=== PATIENT | female | born 1940 | race Caucasian/White ===

== ENCOUNTER 2018-06-26 12:24 | Emergency (ER) | payer MEDICARE, OTHER ==
[2018-06-26 14:43] VITALS: BP 144/77
--- NOTE | 2018-06-26 15:18 | UC ---
Lower Extremity/Ankle HPI - HPI Summary HPI Summary: Pt c/o right ankle pain s/p stepping and having "stick" "poking" medial malleolus ~ 3 weeks ago. Pt states that the wound did not bleed an dshe travelled to [place] for 3 weeks and reports that right ankle was swollen, tender and painful to walk on. - History of Current Complaint Chief Complaint: UCLowerExtremity Stated Complaint: RT ANKLE COMPLAINT Time Seen by Provider: 06/26/18 14:25 Hx Obtained From: Patient ?: No Onset/Duration: Sudden Onset, Lasting Weeks, Still Present Severity Initially: Moderate Severity Currently: Moderate Pain Intensity: 8 Aggravating Factor(s): Standing, Ambulation Alleviating Factor(s): Rest, Elevation, Ice Able to Bear Weight: Yes - Risk Factors Gout Risk Factors: Age Over 40, Hypertension DVT Risk Factors: Recent Travel Septic Arthritis Risk Factor: Negative - Allergies/Home Medications Allergies/Adverse Reactions: Allergies Allergy/AdvReac Type Severity Reaction Status Date / Time amlodipine [From [facility]] Allergy Swelling Verified 06/26/18 14:46 of legs lisinopril Allergy Coughing Verified 06/26/18 14:46 morphine AdvReac Vomiting Verified 06/26/18 14:46 Home Medications: Home Medications Albuterol HFA INHALER* [Ventolin HFA Inhaler*] 2 puff INH Q4H PRN 06/26/18 [ History Confirmed 06/26/18] Amitriptyline TAB* [Elavil TAB*] 10 mg PO BEDTIME 06/26/18 [History Confirmed ] Calcium Carbonate [Calcium] 1,200 mg PO DAILY 06/26/18 [History Confirmed ] Citalopram TAB* [CeleXA TAB*] 20 mg PO DAILY 06/26/18 [History Confirmed ] Diltiazem TAB* [Cardizem 60 MG Tab*] 120 mg PO DAILY 06/26/18 [History Confirmed 06/26/18] Esomeprazole Magnesium [Nexium] 20 mg PO EVERY OTHER DAY 06/26/18 [History Confirmed 06/26/18] Levothyroxine TAB* [Synthroid TAB*] 75 mcg PO DAILY 06/26/18 [History Confirmed 06/26/18] Lipase/Protease/Amylase [Creon 6000 Unit] 36,000 unit PO TID 06/26/18 [History Confirmed 06/26/18] Rivaroxaban TAB(*) [Xarelto 20 mg] 20 mg PO DAILY 06/26/18 [History Confirmed ] celeCOXIB CAP* [CeleBREX CAP*] 100 mg PO BID PRN 06/26/18 [History Confirmed 02/08] PMH/Surg Hx/FS Hx/Imm Hx Previously Healthy: Yes Endocrine History: Dyslipidemia Cardiovascular History: Cardiac Disease, Hypertension, Pacemaker/ICD, Atrial Fibrillation - Surgical History Surgical History: Yes Surgery Procedure, Year, and Place: hysterectomy, c-sect x 4, disc herniation x 2, thyroid x 2, cardiac pacemaker and pneumo thorax 12/17/16- [facility]; and re-do at [facility] due to incorrect lead, a-fib - Family History Known Family History: Positive: Cardiac Disease - Social History Occupation: Retired Lives: With Family Alcohol Use: None Substance Use Type: None Smoking Status (MU): Never Smoked Tobacco Have You Smoked in the Last Year: No - Immunization History Most Recent Tetanus Shot: 2013 approximately Review of Systems Constitutional: Negative Skin: Negative Eyes: Negative ENT: Negative Respiratory: Negative Cardiovascular: Negative Gastrointestinal: Negative Genitourinary: Negative Motor: Decreased ROM - pain with ROM right ankle Neurovascular: Negative Musculoskeletal: Decreased ROM, Edema, Myalgia Neurological: Negative Psychological: Negative Is Patient Immunocompromised?: No All Other Systems Reviewed And Are Negative: Yes Physical Exam Triage Information Reviewed: Yes Appearance: Well-Appearing Vital Signs: Initial Vital Signs Temp 97.6 F 06/26/18 14:26 Pulse 62 06/26/18 14:26 Resp 20 06/26/18 14:26 BP 144/77 06/26/18 14:26 Pulse Ox 96 06/26/18 14:26 Vital Signs Reviewed: Yes Eye Exam: Normal ENT Exam: Normal ENT: Positive: Hearing grossly normal Dental Exam: Normal Neck exam: Normal Respiratory Exam: Normal Respiratory: Positive: No respiratory distress Musculoskeletal: Positive: Edema @ - right ankle lateral and medial Neurological Exam: Normal Psychological Exam: Normal Skin Exam: Normal Diagnostics - Radiology No standard instances Radiology Interpretation Completed By: Radiologist - TECHNIQUE: 3 views of the right ankle were obtained. FINDINGS: There is diffuse soft tissue swelling. The bones are in normal alignment. No fracture or significant focal osseous abnormality is seen. Joint spaces appear maintained. No radiopaque foreign body is seen. IMPRESSION: SOFT TISSUE SWELLING, NO RADIOPAQUE FOREIGN BODY IS SEEN. Lower Extremity Course/Dx - Differential Dx/Diagnosis Differential Diagnosis/HQI/PQRI: Infection, Osteomyelitis, Sprain, Strain Provider Diagnoses: right ankle edema. right ankle pain Discharge - Sign-Out/Discharge Documenting (check all that apply): Patient Departure - Discharge Plan Condition: Stable Disposition: HOME Patient Education Materials: Swollen Ankle Joint (ED) Referrals: Reynaldo Ruiz MD [Medical Doctor] - If Needed Juan Angel MD [Primary Care Provider] - If Needed - Billing Disposition and Condition Condition: STABLE Disposition: Home
--- NOTE | 2018-06-26 15:21 | RAD ---
INDICATION: Pain and swelling, stepped on object. TECHNIQUE: 3 views of the right ankle were obtained. FINDINGS: There is diffuse soft tissue swelling. The bones are in normal alignment. No fracture or significant focal osseous abnormality is seen. Joint spaces appear maintained. No radiopaque foreign body is seen. IMPRESSION: SOFT TISSUE SWELLING, NO RADIOPAQUE FOREIGN BODY IS SEEN.
== END 2018-06-26 15:37 | disposition home or self-care (01) ==
LOC: UCCORT 12:24
DX: M25.471 Effusion, right ankle (principal); M25.571 Pain in right ankle and joints of right foot; Z88.8 Allergy status to other drugs, medicaments and biological substances; Z88.4 Allergy status to anesthetic agent; E78.5 Hyperlipidemia, unspecified; Z95.811 Presence of heart assist device; I51.9 Heart disease, unspecified; I48.91 Unspecified atrial fibrillation
CPT/HCPCS: 99212; G0463

== ENCOUNTER 2018-09-05 11:35 | Emergency (ER) | payer MEDICARE, OTHER ==
--- OUTSIDE RECORDS SUMMARY | 2018-09-05 11:46 | XMS REPORT ---
:1940 Author Organization [facility] Address [address] [place] [address] Care Team Providers Name Role Phone Daniele Weber Unavailable Unavailable PROBLEMS Type Condition ICD9-CM Code OHD38-GD Code Onset Condition SNOMED Code Dates Status Problem Dysuria R30.0 Active 30340323 Problem Acute vulvitis N76.2 Active 23214564 Problem Pelvic and R10.2 Active 392559786 perineal pain Problem Frequency of R35.0 Active 816755669 micturition ALLERGIES No Information ENCOUNTERS Encounter Location Date Diagnosis [facility] [address], [place], [place] [id number] [facility] [address], [place] [id number] [facility] [address], [place] [id number] [facility] [address], [place] [id number] [facility] [address], Encounter for screening OBGYN [facility], mammogram for malignant [place] [id number] neoplasm of breast Z12.31 ; Dysuria R30.0 ; Acute vulvitis N76.2 ; Pelvic and perineal pain R10.2 and Frequency of micturition R35.0 [facility] [address], [place]BGYN [place], [place] [id number] [facility] [address], 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 O[facility], and UTI [Urinary tract [place] [id number] infection] 599.0 [facility] [address], OBGYN [facility], [place] [id number] [facility] [address], Dysuria 788.1 ; Urinary OBGYN [facility], frequency 788.41 and [place] [id number] Urinary urgency 788.63 [facility] [address] Feb, 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 OBGYN [facility], and PELVIC PAIN 625.9 [place] [id number] IMMUNIZATIONS No Known Immunizations SOCIAL HISTORY Never Assessed REASON FOR REFERRAL FUNCTIONAL STATUS PLAN OF CARE VITAL SIGNS MEDICATIONS Medication Instructions Dosage Frequency Start Date End Date Duration Status Flagyl 500 mg po bid 1 tab 12 Aug, 7 days Active PROCEDURES No Known procedures RESULTS No Results REASON FOR VISIT BV Insurance Providers [facility] Member Patient Patient Patient Patient Patient Subscriber Subscriber Subscriber Group Insurance Plan Plan Plan Plan ID Relationship Address Phone Name Date of ID Name Date of No Type Insurance Insurance Insurance Coverage to Subscriber Address Phone Name Dates R [phone] [employer] Jennifer [id number] [facility] [address] Medicare [phone] Medicare self Jennifer [id number] [facility] [address] [employer] [address] [employer] self Jennifer [id number] [address] [place] [address] Medicare [phone] Medicare self Jennifer [id number] [facility] [address] MEDICAL (GENERAL) HISTORY Type Description Date Medical History hypertension Medical History thyroid cancer Medical History GERD Medical History Chronic lower back pain Medical History anxiety Medical History chronic pancreatitis Medical History IBS Medical History meniere's disease Surgical History Thyroidectomy 1971 Surgical History hysterectomy(partial)/enometriosis 1979 Surgical History back surgery/disk repair 1997 Surgical History back surgery/disk repair 1999 Surgical History 1961 Surgical History 1963 Surgical History 1964 Surgical History 1972 Surgical History colonoscopy 2015 Surgical History pacemaker placed 06/2017 Hospitalization History see above
--- OUTSIDE RECORDS SUMMARY | 2018-09-05 11:46 | XMS REPORT ---
:1940 External Reference #:[id number] Author Organization [facility] Address [address] [place] [address] Phone [phone] Care Team Providers Name Role Phone Gregoria Weber MD Care Team Information Manager Ship Unavailable Juan Angel M.D. Primary Care Physician Unavailable Payers Type Date Identification Numbers Payment Provider Subscriber Medicare Primary Policy Number: [id number] Medicare Jennifer Porras PayID: [id number] [address] [place] [address] Medigap Part B Effective: 2012 Policy Number: [place] Chris Porras [id number] Expires: 2017 Group Name: [employer] [address] PayID: [id number] [place] [address] Medigap Part B Policy Number: [id number] [facility] Chris Porras Group Number: [id number] [address] [address] PayID: [id number] [place] [address] Problems Date Description Provider Status Onset: 03/12/2012 Female stress incontinence Dwayne Foy M.D. Active Onset: 03/12/2012 Increased frequency of urination Lidia Lundberg MD Active Family History Date Family Member(s) Problem(s) Comments Father Congestive Heart Failure (CHF) Mother Leukemia First Brother Cancer, Thyroid Second Brother Parkinson's Disease Free Text Denies Prostate, Bladder, Kidney Cancer. No family history of kidney stones. Brother had thyroid cancer. Mother- leukemia. Father - CHF. Brother- Parkinson's disease. 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 Nexium 04/[address] 40mg 1 po qd [facility] Dwayne Awan M.D. Calcium 600+D 04/10 Active Tablets 600-200mg daily Bernardo -Unit Dwayne Awan M.D. Elavil 04/10 Active 10mgS 30uni 1 po qhs ts Dwayne Awan M.D. Celebrex 04/10 Active Capsules 100mg 28cap [facility]n [facility] Citalopram Active Tablets 10mg Unknown Hydrobromide /0000 B Complex Active Capsules Unknown /0000 Diltiazem HCL Active Tablets 120mg Unknown /0000 Xarelto Active Tablets 20mg Unknown /0000 Amitriptyline Active Tablets 10mg take 1 Unknown HCL /0000 tablet by mouth at bedtime Ventolin HFA Active Aerosol 108(90Bas inhale 2 Unknown /0000 e) puffs every mcg/Act 4 hours as needed Keflex 07/22 Hx Capsules 500mg 8caps 1 by mouth Wilver twice a day MD Tyson - 08/03 Flomax 09/27 Hx Capsules 0.4mg 30cap 1 by mouth Law, s every day Dwayne Awan, - M.DCody 07/21 Vesicare 08/10 Hx Tablets 5mg 90tab 1 by mouth Law s every day Dwayne Awan, - M.D. 09/25 Diflucan 07/30 Hx Tablets 150mg 2tabs 1 Tab Today Then Repeat Dwayne Awan, - Day 4 M.D. 08/01 Pyridium 07/30 Hx Tablets 100mg 30tab 1-2 po tid Law s prn Dwayne AwanDesmond M.DCody 07/21 Mycolog Cream 07/30 Hx Cream 667573-9. 30[facility] 316630-7.1 1Unit/GM affected Dwayne Awan, Unit/GM - area twice M.DCody 08/09 daily prn Macrodantin 12/03 Hx Capsules 50mg 90cap 1 po qd 599.0 [facility] s Dwayne EmperatrizDesmond M.DCody 11/27 Synthroid 04/10 Hx Tablets 88mcg alternating [facility] days Dwayne Emperatriz - M.DCody 08/09 Diovan HCT 04/10 Hx Tablets 320-25mg 1 po qd [facility] Dwayne EmperatrizDesmond MSung 07/21 Cardizem CD 04/10 Hx Caps ER 120mgS daily [facility] Dwayne EmperatrizDesmond MSung 07/21 Amitriptyline Hx Tablets 10mg take 1 Unknown HCL /0000 tablet by - mouth at 08/09 bedtime Diltiazem HCL Hx Tablets 120mg take 1 Unknown /0000 tablet by - mouth once 08/09 Vagifem Hx Tablets 10mcg insert 1 Unknown /0000 tablet - vaginally 08/09 two times week Azithromycin Hx Tablets 250mg take 2 Unknown /0000 tablets by - mouth on 08/15 day 1 1 tablet on days 2 through 5 Klor-Con 10 Hx Tablets ER 10Meq take 1 Unknown /0000 tablet by - mouth once 07/21 Moxifloxacin HCL Hx Tablets 400mg take 1 Unknown /0000 tablet by - mouth once 08/15 Calcitriol Hx Capsules 0.5mcg Unknown /0000 - 08/09 Diazepam Hx Tablets 5mg take 1 Unknown /0000 tablet by - mouth three 08/09 times a day if needed Ondansetron Hx Tablets 8mg dissolve 1 Unknown /0000 Dispers tablet On - Tongue 08/09 every hours if needed for nausea Dicyclomine HCL Hx Tablets 20mg take 1 Unknown /0000 tablet by - mouth three 08/09 times a day Diltiazem HCL 00/00 Hx Tablets 90mg take 1 Unknown /0000 tablet by - mouth once 08/09 Amoxicillin 00/ Hx Capsules 500mg take 1 Unknown /0000 capsule by - mouth three 08/15 times a day for 10 days Prednisone 00/00 Hx Tablets 10mg take 1 Unknown /0000 tablet by - mouth every 08/09 Alrex / Hx Suspension 0.2% instill 1 Unknown /0000 drop every - morning 08/09 into both eyes as Directed Prednisone Hx Tablets 20mg take 1 Unknown /0000 tablet by - mouth once 08/09 daily for To 5 Days Prevident 5000 Hx Paste 1.1% use as Unknown Booster Plus /0000 directed - 08/09 Pantoprazole /[address] 40mg take 1 Unknown Sodium /0000 tablet by - mouth once 08/09 Fluzone Hx Suspension PF 13-14 inject 0.5 Unknown High-Dose /0000 milliliter - intramuscul 08/09 gilberto Celexa 00/00 Hx Tablets 10mg every day Unknown /0000 - 07/21 Aspirin 00/00 Hx Tablets 81mg daily Unknown /0000 - 07/21 Phenazopyridine 00/00 Hx Tablets 95mg Unknown HCL /0000 - 07/21 Plaquenil 00/00 Hx Tablets 200mg 1 by mouth Unknown /0000 twice a day - 07/21 Vital Signs Date Vital Result Comment 07/22/2018 Height 62 inches 5'2" Weight 131.00 lb Weight in kg's 59.422 BMI (Body Mass Index) 24.0 kg/m2 02/14/2015 Height 62 inches 5'2" Weight 130.00 lb Weight in kg's 58.968 BMI (Body Mass Index) 23.8 kg/m2 BP Systolic 118 mmHg right wrist audio BP Diastolic 75 mmHg right wrist audio Heart Rate 85 /min Body Temperature 98.0 F 07/30/2012 Height 62 inches 5'2" Weight 125.00 lb Weight in kg's 56.700 BMI (Body Mass Index) 22.9 kg/m2 BP Systolic 139 mmHg right BP Diastolic 79 mmHg right Heart Rate 91 /min Body Temperature 98.3 F 12/03/2011 BP Systolic 121 mmHg right wrist BP Diastolic 67 mmHg right wrist Heart Rate 74 /min Body Temperature 97.7 F Results Test Date Test Result H/L Range Note 230 Ua Routine 08/12/2018 Ua Glucose Negative Ua Protein Negative Ua Nitrite Negative Ua Leuko Trace Ua Blood Negative Ua Color Yellow Ua Ketones Negative Ua Clarity Clear Ua Specific [place] 1.010 1.003-1.030 Ua PH 7.5 5.0-7.5 Ua Bilirubin Negative Ua Urobilinogen 0.2 E.U./dL 0.0-1.0 Urine Culture 07/22/2018 Urine Culture NO GROWTH: FINAL <SEE NOTE> 1, 2 230 Ua Routine 07/22/2018 Ua Glucose Negative Ua Protein Negative Ua Nitrite Negative Ua Leuko Negative Ua Blood Negative Ua Color Yellow Ua Ketones Negative Ua Clarity Clear Ua Specific [place] 1.010 1.003-1.030 Ua PH 7.0 5.0-7.5 Ua Bilirubin Negative Ua Urobilinogen 0.2 E.U./dL 0.0-1.0 230 Ua Routine 05/21/2016 Ua Glucose Negative Ua Protein Negative Ua Nitrite Negative Ua Leuko 1+ Ua Blood Negative Ua Color yellow Ua Ketones Negative Ua Clarity clear Ua Specifici [place] 1.015 1.003-1.030 Ua PH 7.0 5.0-7.5 Ua Bilirubin Negative Ua Urobilinogen 0.2 E.U./dL 0.0-1.0 Urine Culture & Sensitivity 02/14/2015 Result (SEE NOTE) 3 #Ua Routine 02/14/2015 Ua Glucose Negative Ua Protein Negative Ua Nitrite Negative Ua Leuko 1+ Ua Blood Negative Ua Color yellow Ua Ketones Negative Ua Clarity clear Ua Specific [place] 1.015 1.003-1.030 Ua PH 7.5 5.0-7.5 Ua Bilirubin Negative Ua Urobilinogen 0.2 E.U./dL 0.0-1.0 #Ua Routine 09/27/2014 Ua Glucose Negative Ua Protein Negative Ua Nitrite Negative Ua Leuko Trace Ua Blood Negative Ua Color yellow Ua Ketones Negative Ua Clarity clear Ua Specific [place] 1.020 1.003-1.030 Ua PH 7.0 5.0-7.5 Ua Bilirubin Negative Ua Urobilinogen 0.2 E.U./dL 0.0-1.0 Urine Culture & Sensitivity 09/27/2014 Result mix f 100 4 Urine Cytology 09/27/2014 Clinical History 599.0 5 Specimen Adequacy Scant urothelial <SEE NOTE> 6 BodySite Voided - Clean C <SEE NOTE> 7 Gross Description Received in a sp <SEE NOTE> 8 Microscopic Description None. Final Diagnosis NO MALIGNANT IVAN <SEE NOTE> 9 CPTCode 87306 PDF Report SEE IMAGE Urine Culture & Sensitivity 08/10/2014 Result trent 10 #Ua Routine 08/10/2014 Ua Glucose Negative Ua Protein Negative Ua Nitrite Negative Ua Leuko Trace Ua Blood Negative Ua Color yellow Ua Ketones Negative Ua Clarity clear Ua Specific [place] 1.010 1.003-1.030 Ua PH 6.0 5.0-7.5 Ua Bilirubin Negative Ua Urobilinogen 0.2 E.U./dL 0.0-1.0 #Ua Routine 08/13/2012 Ua Glucose Negative Ua Protein Negative Ua Nitrite Negative Ua Leuko 1+ Ua Blood Negative Ua Color Not Entered Ua Ketones Negative Ua Clarity Not Entered Ua Specific [place] 1.015 Ua PH 7.5 Ua Bilirubin Negative Ua Urobilinogen 0.2 E.U./dL Culture Urine 07/30/2012 Result (SEE NOTE) 11 #Ua Routine 07/30/2012 Ua Glucose Negative Ua Protein Negative Ua Nitrite Negative Ua Leuko Trace Ua Blood Trace-intact Ua Color Not Entered Ua Ketones Negative Ua Clarity Not Entered Ua Specific [place] 1.020 Ua PH 7.5 Ua Bilirubin Negative Ua Urobilinogen 0.2 E.U./dL Culture Urine 12/03/2011 Result (SEE NOTE) 12 #Ua Routine 12/03/2011 Ua Glucose Negative Ua Protein Negative Ua Nitrite Negative Ua Leuko Trace Ua Blood Negative Ua Color Not Entered Ua Ketones Negative Ua Clarity Not Entered Ua Specific [place] 1.010 Ua PH 7.0 Ua Bilirubin Negative Ua Urobilinogen 0.2 E.U./dL Culture Urine 03/15/2011 Result (SEE NOTE) 13 #Ua Routine 03/15/2011 Ua Glucose Negative Ua Prot/Creat Normal Ua Protein Negative Ua Nitrite Negative Ua Leuko 1+ Ua Blood Negative Ua Color Not Entered Ua Ketones Negative Ua Clarity Not Entered Ua Specific [place] 1.010 Ua PH 7.5 Ua Creatinine 100 mg/dL 1 N39.0 R30.0 2 NO GROWTH: FINAL REPORT 3 GENERAL COMMENTS: Mixed urogenital trent, 10,000-20,000 CFU/mL. 4 GENERAL COMMENTS: Mixed urogenital trent, consisting of predominantly diphtheroids greater than 100,000 CFU/mL. 5 599.72 6 Scant urothelial cells present. 7 Voided - Clean Catch 8 Received in a specimen container, labeled with the patients name and , is Clear Yellow fluid consistent with urine, measuring approximately 20 ml. 9 NO MALIGNANT CELLS IDENTIFIED. 10 SOURCE: Voided GENERAL COMMENTS: Mixed urogenital trent, 10,000 - 20,000 CFU/mL. 11 GENERAL COMMENTS: Less than 10,000 CFU/ml, urogential trent. --- S=Sensitive I=Intermediate R=Resistant IB=Inducible Beta-lactamase. Appears in place of "Suceptible" with species known to possess inducible beta-lactamases. Potentially, they may become resistant to all beta-lactam drugs. Monitoring of p atients during/after therapy is recommended. Avoid other/combined beta- lactam drugs. 12 GENERAL COMMENTS: No Growth after 24 hours. --- S=Sensitive I=Intermediate R=Resistant IB=Inducible Beta-lactamase. Appears in place of "Suceptible" with species known to possess inducible beta-lactamases. Potentially, they may become resistant to all beta-lactam drugs. Monitoring of p atients during/after therapy is recommended. Avoid other/combined beta- lactam drugs. 13 GENERAL COMMENTS: No Growth after 24 hours --- S=Sensitive I=Intermediate R=Resistant IB=Inducible Beta-lactamase. Appears in place of "Suceptible" with species known to possess inducible beta-lactamases. Potentially, they may become resistant to all beta-lactam drugs. Monitoring of p atients during/after therapy is recommended. Avoid other/combined beta- lactam drugs. Procedures Date CPT Code Description Status 08/12/2018 21950 Bladder Scan, Post Voiding Residual Urine Completed 07/22/2018 65761 Catheterization, Single Spec Collection - Medicare Only Completed 03/24/2016 Mammogram Completed 12/25/2015 Colonoscopy Completed 09/27/2014 17644 Ultrasound Retro Renal Real Time With Image Completed 09/27/2014 66503 Cystourethroscopy, W/Calibration And/Or Dilation Of Completed Urethral Stri Encounters Type Date Location Provider CPT E/M Dx Office Visit 08/12/2018 10:30a [place] [facility] [address] R30.0 Urology Natalie Elizondo R39.15 D41.10 Office Visit 07/22/2018 10:15a [place] [facility] [address] N39.0 Urology Natalie Elizondo R30.0 Office Visit 05/21/2016 10:30a [facility] Dwayne Foy, 57786 N39.3 M.D. N35.9 Office Visit 02/14/2015 10:50a [facility] Dwayne Foy, 91002 599.0 M.D. 788.41 598.9 Office Visit 09/27/2014 9:20a [facility] Dwayne Foy, 24032 599.0 M.D. 788.41 788.21 598.9 599.72 Office Visit 08/10/2014 1:50p [facility] Dwayne Foy, 15099 599.0 M.D. 788.41 625.6 Office Visit 08/13/2012 10:15a [facility] Jeri Lee NP/GLENN 40240 599.0 Office Visit 07/30/2012 2:15p [place] Jeri Lee, [employer] [address] 788.1 788.41 Office Visit 12/03/2011 11:40a [place] Dwayne Foy, 13679 599.0 M.D. 625.6 788.41 Office Visit 03/15/2011 10:30a [place] Jeri Lee, [place] [address] 788.41 593.2 625.6 Plan of Care Future Appointment(s):09/08/2018 10:45 am - Dennis ElizondoPObdulio at [place] Vkakoyh73/08/2018 10:00 am - [facility] [place] [id number] - Dennis ElizondoPObdulioR30.0 DysuriaComments:Currently we will hold with antibiotics. We reviewed dietary control and potential for triggers. Shewas provided information regarding presentation to be used with [id number] Urgency of urinationComments:She may try Uribel once twice a day. Dosing and side effects reviewed. 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 In the meantime I'll see her back 4 weeks in 3 weeks will have a renal bladder ultrasound.AllNew Medication:Uribel 118 mg
--- OUTSIDE RECORDS SUMMARY | 2018-09-05 11:46 | XMS REPORT ---
:1940 External Reference #:[id number] Author Organization [facility] Address [address] [place] [address] Phone [phone] Care Team Providers Name Role Phone Faith Manuel MD Care Team Information Cnc Mechanic Unavailable Faith Manuel MD Primary Care Physician Unavailable Payers Type Date Identification Numbers Payment Provider Subscriber Medicare Primary Policy Number: [id number] Medicare Jennifer Porras PayID: [id number] [address] [place] [address] Commercial Policy Number: [id number] Lifetime Benefit Solution Chris Porras Group Number: [id number] [address] [address] PayID: [place] [address] Problems Description No Information Social History Description No Information Available Allergies, Adverse Reactions, Alerts Description No Information Medications Description No Information Results Description No Information Procedures Date CPT Code Description Status 06/29/2009 64185 Stress Test Interpre And Report Only Completed Encounters Type Date Location Provider CPT E/M Dx Office Visit 04/23/2014 1:20p [facility] Remigio Tovar [address] 786.50 [facility] Anabel 386.00 401.1 276.8 787.01 Office Visit 04/01/2007 11:00a Operating Room Rene Martinez M.D. 56577 Plan of Care No Information Available
--- OUTSIDE RECORDS SUMMARY | 2018-09-05 11:46 | XMS REPORT ---
:1940 Author Organization [facility] Address [address] [place] [address] Care Team Providers Name Role Phone Rosa Hernandez Unavailable Unavailable PROBLEMS Type Condition ICD9-CM Code URO28-DQ Code Onset Condition SNOMED Code Dates Status Problem Dysuria R30.0 Active 82528373 Problem Acute vulvitis N76.2 Active 74520175 Problem Pelvic and R10.2 Active 396876941 perineal pain Problem Frequency of R35.0 Active 677827247 micturition ALLERGIES Substance Reaction Event Type Date Status morphine severe vomiting Drug Allergy Aug, Active ENCOUNTERS Encounter Location Date Diagnosis [facility] [address] Aug, OBGYN [place], [place] [id number] [facility] Aug, [facility] [place] [id number] 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 OBGYN [facility], and UTI [Urinary tract [place] [id number] infection] 599.0 [facility] 103 March, OBGYN [facility], [place] [id number] [facility] 103 March, Dysuria 788.1 ; Urinary OBGYN [facility], frequency 788.41 and [place] [id number] Urinary urgency 788.63 [facility] 103 11 Feb, 2006 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 O[facility]YN [facility], and PELVIC PAIN 625.9 [place] [id number] IMMUNIZATIONS No Known Immunizations SOCIAL HISTORY Never Assessed REASON FOR REFERRAL FUNCTIONAL STATUS PLAN OF CARE Activity Details Follow Up schedule mammo, annual in 1 yr, abdominal US & f/u w/Dr. G in 1-2 weeks Reason: Pending Test Screening Mammogram Pending Test UA RFX MICRO & CULTURE II Pending Test URINALYSIS WITH MICROSCOPIC Pending Test Vaginosis Panel VITAL SIGNS Height 61 in 2018-08-26 Weight 132 lbs 2018-08-26 BMI 24.94 kg/m2 2018-08-26 Blood pressure systolic 132 mm Hg 2018-08-26 Blood pressure diastolic 86 mm Hg 2018-08-26 MEDICATIONS Medication Instructions Dosage Frequency Start End Duration Status Date Date Vagifem 10 mcg intravaginally 2 1 tab(s) Active times a week Nexium 20 mg orally once a day 1 cap(s) 24h Active Ventolin HFA 90 inhaled 4 times a 2 puff(s) 6h Active mcg/inh day Lotrisone applied topically 1 benjamin 12h Aug, 10 days Active 0.05%-1% 2 times a day 2017 citalopram 20 mg orally once a day 1 tab(s) 24h Active amitriptyline 10 orally once a day 1 tab(s) Active mg (at bedtime) Diflucan 150 mg orally once, 1 tab(s) Aug, 3 days Active repeat in 3 days 2018 diltiazem 120 orally every 12 1 cap(s) 12h Active mg/12 hours hours Uribel 0.12 orally 4 times a 1 cap(s) 6h Active mg-118 mg-10 day mg-36 mg-40.8 mg Synthroid 75 mcg orally once a day 1 tab(s) 24h Active (0.075 mg) Calcium 600+D 600 orally 2 times a 1 tab(s) 12h Active mg-800 intl units day celecoxib 100 mg orally 2 times a 1 cap(s) Active day PRN Creon 36,000 orally 3 times a 1 cap(s) 8h Active units-114,000 day units-180,000 units PROCEDURES Procedure Date Ordered Result Body Site URINE-NO MICRO Aug 26, 2018 RESULTS Name Result Date Reference Range Urine dip Glucose blood protein Nitrite Leuko Urobilinogen Keytone Bilirubin pH REASON FOR VISIT dysuria and pressure when urinating x 5 weeks , saw Dr. 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 Insurance Providers [facility] Health Member Patient Patient Patient Patient Patient Subscriber Subscriber Subscriber Group Insurance Plan Plan Plan Plan ID Relationship Address Phone Name Date of ID Name Date of No Type Insurance Insurance Insurance Coverage to Subscriber Address Phone Name Dates Medicare [phone] Medicare self Jennifer [id number] [facility] [address] [employer] [phone] [employer] self Jennifer [id number] [address] Medicare [phone] Medicare self Jennifer [id number] [facility] [address] UMR [phone] UMR Jennifer [id number] [facility] [address] [address] MEDICAL (GENERAL) HISTORY Type Description Date Medical History hypertension Medical History thyroid cancer Medical History GERD Medical History Chronic lower back pain Medical History anxiety Medical History chronic pancreatitis Medical History IBS Medical History meniere's disease Surgical History Thyroidectomy 1971 Surgical History hysterectomy(partial)/enometriosis 1979 Surgical History back surgery/disk repair 1997 Surgical History back surgery/disk repair 1999 Surgical History 1960 Surgical History 1962 Surgical History 1964 Surgical History 1971 Surgical History colonoscopy 2015 Surgical History pacemaker placed 06/2017 Hospitalization History see above
--- OUTSIDE RECORDS SUMMARY | 2018-09-05 11:46 | XMS REPORT ---
:[address] [facility] Address [address] [place] [address] Care Team Providers Name Role Phone Daniele Weber Unavailable Unavailable PROBLEMS Type Condition ICD9-CM Code NRG01-YM Code Onset Condition SNOMED Code Dates Status Problem Dysuria R30.0 Active 16616998 Problem Acute vulvitis N76.2 Active 21272187 Problem Pelvic and R10.2 Active 116988758 perineal pain Problem Frequency of R35.0 Active 591780499 micturition ALLERGIES No Information ENCOUNTERS Encounter Location Date Diagnosis [facility] Aug, OBGYN [place], [place] [id number] [facility] [address] Aug, [place]BGYN [place] [id number] [facility] Aug, [place] [id number] [facility] 103 Aug, [place]BGYN [place] [id number] [facility] 103 Aug, Encounter for screening OBG[facility], mammogram for malignant [place] [id number] neoplasm of breast Z12.31 ; Dysuria R30.0 ; Acute vulvitis N76.2 ; Pelvic and perineal pain R10.2 and Frequency of micturition R35.0 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 March, OBGYN [facility], [place] [id number] [facility] 103 March, Dysuria 788.1 ; Urinary OBG[facility], frequency 788.41 and [place] [id number] Urinary urgency 788.63 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 O[facility], and PELVIC PAIN 625.9 [place] [id number] IMMUNIZATIONS No Known Immunizations SOCIAL HISTORY Never Assessed REASON FOR REFERRAL FUNCTIONAL STATUS PLAN OF CARE VITAL SIGNS MEDICATIONS Medication Instructions Dosage Frequency Start Date End Date Duration Status Flagyl 500 mg po bid 1 tab 12 Aug, 7 days Active PROCEDURES No Known procedures RESULTS No Results REASON FOR VISIT Flagyl Insurance Providers [facility] Health Member Patient Patient Patient Patient Patient Subscriber Subscriber Subscriber Group Insurance Plan Plan Plan Plan ID Relationship Address Phone Name Date of ID Name Date of No Type Insurance Insurance Insurance Coverage to Subscriber Address Phone Name Dates UMR [phone] UMR Jennifer [id number] [facility] [address] [employer] [phone] [employer] self Jennifer [id number] [address] Medicare [phone] Medicare self Jennifer [id number] [facility] [address] Medicare [phone] Medicare self Jennifer [id number] [facility] [address] MEDICAL (GENERAL) HISTORY Type Description Date Medical History hypertension Medical History thyroid cancer Medical History GERD Medical History Chronic lower back pain Medical History anxiety Medical History chronic pancreatitis Medical History IBS Medical History meniere's disease Surgical History Thyroidectomy 1971 Surgical History hysterectomy(partial)/enometriosis 1979 Surgical History back surgery/disk repair 1997 Surgical History back surgery/disk repair 1999 Surgical History 196 Surgical History 1963 Surgical History 1964 Surgical History 1972 Surgical History colonoscopy 2015 Surgical History pacemaker placed 06/2017 Hospitalization History see above
--- OUTSIDE RECORDS SUMMARY | 2018-09-05 11:47 | XMS REPORT ---
:1940 External Reference #:[id number] Author Organization [facility] Address [address] [place] [address] Phone [phone] Care Team Providers Name Role Phone Gregoria Weber MD Care Team Information Core Sucker Unavailable Juan Angel M.D. Primary Care Physician Unavailable Payers Type Date Identification Numbers Payment Provider Subscriber Medicare Primary Policy Number: [id number] Medicare Jennifer Porras PayID: [id number] [address] [place] [address] Medigap Part B Effective: 2012 Policy Number: Pom[place] Chris Porras [id number] Expires: 2017 Group Name: Ppo [address] PayID: [id number] [place] [address] Medigap Part B Policy Number: [id number] [facility] Chris Porras Group Number: [id number] [address] [address] PayID: [id number] [place] [address] Problems Date Description Provider Status Onset: 03/12/2012 [...] Active Capsules DR 40mg 1 po qd [facility] Dwayne Awan M.D. Calcium 600+D 04/10 Active Tablets 600-200mg daily Bernardo -Unit Dwayne Awan M.D. Elavil 04/10 Active 10mgS 30uni 1 po qhs ts Dwayne Awan M.D. Celebrex 04/10 Active Capsules 100mg 28cap 1 po q prn [facility] M.D. Citalopram Active Tablets [...] M.DCody 07/21 Mycolog Cream 07/30 Hx Cream 869952-3. 30gm [facility], 475955-3.1 1Unit/GM affected Dwayne Awan, Unit/GM - area twice M.DCody 08/09 daily prn Macrodantin 12/03 Hx Capsules 50mg 90cap 1 po qd 599.0 [facility] s Dwayne EmperatrizDesmond M.DCody 11/27 Synthroid 04/10 Hx Tablets 88mcg alternating [facility] days Dwayne Emperatriz - M.DCody 08/09 Diovan HCT 04/10 Hx Tablets 320-25mg 1 po qd [facility] Dwayne EmperatrizDesmond MSung 07/21 Cardizem CD 04/10 Hx Caps ER 120mgS daily [facility] Dwayne EmperatrizDesmond MSung 07/21 Amitriptyline Hx [...] Ketones Negative Ua Clarity Clear Ua Specific [place] 1.010 1.003-1.030 Ua PH 7.5 5.0-7.5 Ua Bilirubin Negative Ua Urobilinogen 0.2 E.U./dL 0.0-1.0 Urine Culture 07/22/2018 Urine Culture NO GROWTH: FINAL <SEE NOTE> 1, 2 230 Ua Routine 07/22/2018 Ua Glucose Negative Ua Protein Negative Ua Nitrite Negative Ua Leuko Negative Ua Blood Negative Ua Color Yellow Ua Ketones Negative Ua Clarity Clear Ua Specific [place] 1.010 1.003-1.030 Ua PH 7.0 5.0-7.5 Ua Bilirubin Negative Ua Urobilinogen 0.2 E.U./dL 0.0-1.0 230 Ua Routine 05/21/2016 Ua Glucose Negative Ua Protein Negative Ua Nitrite Negative Ua Leuko 1+ Ua Blood Negative Ua Color yellow Ua Ketones Negative Ua Clarity clear Ua Specifici [place] 1.015 1.003-1.030 Ua PH 7.0 5.0-7.5 Ua Bilirubin Negative Ua Urobilinogen 0.2 E.U./dL 0.0-1.0 Urine Culture & Sensitivity 02/14/2015 Result (SEE NOTE) 3 #Ua Routine 02/14/2015 Ua Glucose Negative Ua Protein Negative Ua Nitrite Negative Ua Leuko 1+ Ua Blood Negative Ua Color yellow Ua Ketones Negative Ua Clarity clear Ua Specific [place] 1.015 1.003-1.030 Ua PH 7.5 5.0-7.5 Ua Bilirubin Negative Ua Urobilinogen 0.2 E.U./dL 0.0-1.0 #Ua Routine 09/27/2014 Ua Glucose Negative Ua Protein Negative Ua Nitrite Negative Ua Leuko Trace Ua Blood Negative Ua Color yellow Ua Ketones Negative Ua Clarity clear Ua Specific [place] 1.020 1.003-1.030 Ua PH 7.0 5.0-7.5 Ua [...] NO MALIGNANT IVAN <SEE NOTE> 9 CPTCode 74291 PDF Report SEE IMAGE Urine Culture & Sensitivity 08/10/2014 Result trent 10 #Ua Routine 08/10/2014 Ua Glucose Negative Ua Protein Negative Ua Nitrite Negative Ua Leuko Trace Ua Blood Negative Ua Color yellow Ua Ketones Negative Ua Clarity clear Ua Specific [place] 1.010 1.003-1.030 Ua PH 6.0 5.0-7.5 Ua Bilirubin Negative Ua Urobilinogen 0.2 E.U./dL 0.0-1.0 #Ua Routine 08/13/2012 Ua Glucose Negative Ua Protein Negative Ua Nitrite Negative Ua Leuko 1+ Ua Blood Negative Ua Color Not Entered Ua Ketones Negative Ua Clarity Not Entered Ua Specific [place] 1.015 Ua PH 7.5 Ua Bilirubin Negative Ua Urobilinogen 0.2 E.U./dL Culture Urine 07/30/2012 Result (SEE NOTE) 11 #Ua Routine 07/30/2012 Ua Glucose Negative Ua Protein Negative Ua Nitrite Negative Ua Leuko Trace Ua Blood Trace-intact Ua Color Not Entered Ua Ketones Negative Ua Clarity Not Entered Ua Specific [place] 1.020 Ua PH 7.5 Ua Bilirubin Negative Ua Urobilinogen 0.2 E.U./dL Culture Urine 12/03/2011 Result (SEE NOTE) 12 #Ua Routine 12/03/2011 Ua Glucose Negative Ua Protein Negative Ua Nitrite Negative Ua Leuko Trace Ua Blood Negative Ua Color Not Entered Ua Ketones Negative Ua Clarity Not Entered Ua Specific [place] 1.010 Ua PH 7.0 Ua Bilirubin Negative Ua Urobilinogen 0.2 E.U./dL Culture Urine 03/15/2011 Result (SEE NOTE) 13 #Ua Routine 03/15/2011 Ua Glucose Negative Ua Prot/Creat Normal Ua Protein Negative Ua Nitrite Negative Ua Leuko 1+ Ua Blood Negative Ua Color Not Entered Ua Ketones Negative Ua Clarity Not Entered Ua Specific [place] 1.010 Ua PH 7.5 Ua Creatinine 100 [...] drugs. Procedures Date CPT Code Description Status 07/22/2018 46982 Catheterization, Single Spec Collection - Medicare Only Completed 03/24/2016 Mammogram Completed 12/25/2015 Colonoscopy Completed 09/27/2014 31690 Ultrasound Retro Renal Real Time With Image Completed 09/27/2014 97853 Cystourethroscopy, W/Calibration And/Or Dilation Of Completed Urethral Stri Encounters Type Date Location Provider CPT E/M Dx Office Visit 08/12/2018 10:30a [place] [facility] [address] R30.0 Urology Natalie Elizondo R39.15 D41.10 Office Visit 07/22/2018 10:15a [place] [address] N39.0 Urology Natalie Elizondo R30.0 Office Visit 05/21/2016 10:30a [facility], [address]47 N39.3 M.D. N35.9 Office Visit 02/14/2015 10:50a [facility], [address] 599.0 M.D. 788.41 598.9 Office Visit 09/27/2014 9:20a [facility] Dwayne Foy, 780[address] 599.0 M.D. 788.41 788.21 598.9 599.72 Office Visit 08/10/2014 1:50p [facility], [address] 599.0 M.D. 788.41 625.6 Office Visit 08/13/2012 10:15a [facility] Jeri Lee, JORJE/[place] [address] 599.0 Office Visit 07/30/2012 2:15p [facility] JesusJeri huertas, INFORMATION TECHNOLOGY SECURITY ANALYST/[place] [address] 788.1 788.41 Office Visit 12/03/2011 11:40a [facility] Dwayne Foy, [address] 599.0 M.D. 625.6 788.41 Office Visit 03/15/2011 10:30a [facility] JesusJeri, INFORMATION TECHNOLOGY SECURITY ANALYST/[place] [address] 788.41 593.2 625.6 Plan of Care Future Appointment(s):09/08/2018 10:45 am - [facility] [id number]/08/2018 10:00 am - Amaury [facility] [id number] - Dennis ElizondoPCodyACodyR30.0 DysuriaComments:Currently we will hold with antibiotics. We reviewed dietary control and potential for triggers. Shewas provided information regarding presentation to be used with [id number] Urgency of urinationComments:She may try Uribel once twice a day. Dosing and side effects reviewed. 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 In the meantime I'll see her back 4 weeks in 3 weeks will have a renal bladder ultrasound.AllNew Medication:Uribel 118 mg
[2018-09-05 12:33] VITALS: BP 123/70
--- NOTE | 2018-09-05 12:46 | UC ---
Respiratory Complaint HPI - HPI Summary HPI Summary: 77 year old female with cough . states sore throat beginning 7 days ago, progressed to productive cough and chest congestion. Patient has questionable respiratory issues and is awaiting seeing a pulmonary doctor at the end of this month. She denies any fevers but states that now that she is on day 7 and her cough has become more productive she is concerned because she has had previous bronchitis and pneumonia but states she does not feel like it is a pneumonia at this time. She denies any fevers chills or night sweats but has noticed some increased wheezing and use of her Ventolin inhaler. She states to have had all of her immunizations including her pneumonia shot a couple years ago. [ End ] - History of Current Complaint Chief Complaint: UCRespiratory Stated Complaint: CHEST CONGESTION, COUGH Time Seen by Provider: 09/05/18 12:40 Hx Obtained From: Patient Hx Last Menstrual Period: n/a Onset/Duration: Gradual Onset Timing: Constant Severity Initially: Mild Severity Currently: Mild Pain Intensity: 0 Character: Cough: Productive Associated Signs And Symptoms: Positive: Nasal Congestion, Sinus Discomfort - Allergies/Home Medications Allergies/Adverse Reactions: Allergies Allergy/AdvReac Type Severity Reaction Status Date / Time amlodipine [From Norvasc] Allergy Swelling Verified 09/05/18 12:27 of legs cephalexin [From Keflex] Allergy Rash Verified 09/05/18 12:27 lisinopril Allergy Coughing Verified 09/05/18 12:27 morphine AdvReac Vomiting Verified 09/05/18 12:27 PMH/Surg Hx/FS Hx/Imm Hx Previously Healthy: Yes Endocrine History: Hypothyroidism, Dyslipidemia Cardiovascular History: Hypertension - Surgical History Surgical History: Yes Surgery Procedure, Year, and Place: hysterectomy, c-sect x 4, disc herniation x 2, thyroid x 2, cardiac pacemaker and pneumo thorax 12/17/16- [facility]; and re-do at [facility] due to incorrect lead, a-fib - Family History Known Family History: Positive: Cardiac Disease - Social History Occupation: Retired Alcohol Use: None Substance Use Type: None Smoking Status (MU): Never Smoked Tobacco Have You Smoked in the Last Year: No - Immunization History Most Recent Tetanus Shot: 2013 approximately Review of Systems Constitutional: Fatigue ENT: Sore Throat, Ear Ache, Nasal Discharge, Sinus Congestion, Sinus Pain/ Tenderness Respiratory: Cough Is Patient Immunocompromised?: No All Other Systems Reviewed And Are Negative: Yes Physical Exam Triage Information Reviewed: Yes Appearance: Well-Appearing, No Pain Distress, Well-Nourished Vital Signs: Initial Vital Signs Temp 98.1 F 09/05/18 12:25 Pulse 80 09/05/18 12:25 Resp 18 09/05/18 12:25 BP 123/70 09/05/18 12:25 Pulse Ox 96 09/05/18 12:25 Vital Signs Reviewed: Yes Eye Exam: Normal ENT Exam: Normal ENT: Positive: Normal ENT inspection, Nasal congestion, Nasal drainage, TM dull Dental Exam: Normal Neck exam: Normal Neck: Positive: 1 Respiratory Exam: Normal Respiratory: Positive: Chest non-tender, Wheezing - Mild expiratory in the RLL Cardiovascular Exam: Normal Musculoskeletal Exam: Normal Neurological Exam: Normal Psychological Exam: Normal Skin Exam: Normal UC Diagnostic Evaluation - Laboratory O2 Sat by Pulse Oximetry: 96 Respiratory Course/Dx - Course Course Of Treatment: With the duration of her symptoms at this time with productive cough we will advised to start antibiotics. She has cephalosporin allergy which is a rash so will also avoid penicillin. Interaction with the Z- Jose Daniel with her current medication. Start doxycycline and off for cough suppressant for nighttime. Return to office if any concerns. No physical exam findings of pneumonia at this time and vital signs are stable. Patient agreeable to plan and aware of side effects. - Differential Dx/Diagnosis Differential Diagnosis/HQI/PQRI: Bronchitis, Laryngitis, Lower Resp Infection, Sinusitis Provider Diagnoses: bronchitis Discharge - Sign-Out/Discharge Documenting (check all that apply): Patient Departure All imaging exams completed and their final reports reviewed: No Studies - Discharge Plan Condition: Good Disposition: HOME Prescriptions: Benzonatate CAP* [Tessalon 100 MG CAP*] 100 mg PO TID #20 cap DOXYcycline CAP(*) [DOXYcycline 100MG CAP(*)] 100 mg PO BID #20 cap Patient Education Materials: Acute Bronchitis (ED) Referrals: Juan Angel MD [Primary Care Provider] - 4 Days - Billing Disposition and Condition Condition: GOOD Disposition: Home
== END 2018-09-05 13:08 | disposition home or self-care (01) ==
LOC: UCCORT 11:35
DX: J40 Bronchitis, not specified as acute or chronic (principal); Z88.1 Allergy status to other antibiotic agents; Z88.8 Allergy status to other drugs, medicaments and biological substances; Z88.5 Allergy status to narcotic agent; I10 Essential (primary) hypertension
CPT/HCPCS: 99212; G0463

== ENCOUNTER 2019-08-10 12:42 | Emergency (ER) | payer MEDICARE, OTHER ==
--- OUTSIDE RECORDS SUMMARY | 2019-08-10 12:49 | XMS REPORT | Continuity of Care Document ---
:1940 Author Name [employer], System Address Unavailable Unavailable , Care Team Providers Name Role Phone Mar GALVEZ, Faith Unavailable Unavailable Sadie GALVEZ, Eliceo Unavailable Jeanne GALVEZ, Chris Unavailable Problems No Problem Information Available Allergies and Adverse Reactions No Allergy Information Available Medications No Medication Information Available Social History No Social History Information Available Unknown if ever smoked Female Results No Known Results No Result Information Available Vital Signs No Vital Observation Information Available Advance Directives HIPAA - Patient specified Unknown. Payers Medicare [place] [address] [facility] [address] [place] Group Number: [id number] tel: [facility] [address] [address] [place] [address] [place] Group Number: NONE tel: [facility] [address] [address] [place] tel:
--- OUTSIDE RECORDS SUMMARY | 2019-08-10 12:49 | XMS REPORT | Continuity of Care Document ---
:1940 Author Name Personal Injury Attorney, System Address Unavailable Unavailable , Care Team Providers Name Role Phone Mar GALVEZ, Faith Unavailable Unavailable Sadie GALVEZ, Eliceo Unavailable Jeanne GALVEZ, Chris Unavailable Problems No Problem Information Available Allergies and Adverse Reactions No Allergy Information Available Medications No Medication Information Available Procedures Hospitalization Status: Completed Jul-2019 Comments: Abnormal. dyspnea; consultation Rosie GALVEZ 07/28/2019 Social History No Social History Information Available Unknown if ever smoked Female Results No Known Results No Result Information Available Vital Signs No Vital Observation Information Available Advance Directives HIPAA - Patient specified Unknown. Encounters Historical Summary 28-Jul-2019 13:04 To 28-Jul-2019 13:09 [place] [facility] Office Payers Medicare [place] [address] [facility] [address] [place] Group Number: NONE tel: [facility] [address] [address] [facility] [address] [place] Group Number: NONE tel: [facility] [address] [facility] [id number] [place] tel:
--- OUTSIDE RECORDS SUMMARY | 2019-08-10 12:49 | XMS REPORT | Continuity of Care Document ---
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 [phone] Problems Description No Information Available Social History Type Date Description Comments Sex Unknown Tobacco Use Start: Unknown Never Smoked Cigarettes Smoking Status Reviewed: 07/06/19 Never Smoked Cigarettes ETOH Use Denies alcohol use Tobacco Use Start: Unknown Patient has never smoked Recreational Drug Use Denies Drug Use Exercise Type/Frequency Exercises regularly Allergies, Adverse Reactions, Alerts Active Allergies Reaction Severity Comments Date Morphine 10/14/2018 Lisinopril 10/14/2018 Keflex 10/14/2018 Norvasc 10/14/2018 Medications Active Medications SIG Qnty Indications Ordering Date Provider Montelukast Sodium take 1 tablet 30tabs J45.20 Poncho Page MD 10/14/2018 10mg daily. Tablets Nexium Take 1 tablet 30caps K21.9 Poncho Page MD 10/14/[address] every day. Symbicort inhale two puffs Unknown by mouth daily 160-4.5mcg/Act Aerosol Furosemide take 1 tablet by Unknown 20mg Tablets mouth once daily Mucinex take 1 every 12 Unknown 600mg Tablets hours as needed ER 12HR for congestion with a full glass of water Calcium 600 2 po qd Unknown 600mg Tablets Ventolin HFA take 2 puffs every 8gm Poncho Page MD 6 hours as needed 108(90Base) mcg/Act for shortness of Aerosol breath. Celecoxib 1 tab by mouth Unknown 100mg twice a day as Capsules needed Creon 1 po tid Unknown [id number] Caps DR Acevedo Citalopram 1 by mouth every Unknown Hydrobromide day 20mg Tablets Synthroid 1 by mouth every Unknown 75mcg Tablets day Diltiazem HCL take one tablet by Unknown 120mg mouth once daily Tablets History Medications Neurontin 1 po bid and as 90caps J41.0 Poncho Page, 05/12/2019 - 100mg needed 07/06/2019 Capsules Prednisone take 2 tablet in 10tabs J45.20 Poncho Page, 03/17/2019 - 20mg Tablets the morning for MD Unknown five days Azithromycin take two tablets 6tabs J45.20 Poncho Page, 03/17/2019 - 250mg today, then one a MD Unknown Tablets day for the next four days. Diflucan One by mouth, 2tabs J45.20 Poncho Page, 03/17/2019 - 150mg Tablets repeat in one MD Unknown week. Albuterol Sulfate nebulized every 90ml Poncho Page, 03/17/2019 - 4-6 hours as 07/06/2019 (2.5mg/3ML) 0.083% needed Nebulizer Immunizations Description No Information Available Vital Signs Date Vital Result Comment 07/06/2019 2:32pm BP Systolic Sitting Left Arm 118 mmHg BP Diastolic Sitting Left Arm 60 mmHg Heart Rate 63 /min Respiratory Rate 20 /min Height 61 inches 5'1" Weight 133.50 lb BMI (Body Mass Index) 25.2 kg/m2 BSA (Body Surface Area) 1.59 m2 [place] body weight in kilograms 48 kg O2 % BldC Oximetry 95 % Ra Pain Level 0 05/12/2019 11:29am BP Systolic Sitting Left Arm 130 mmHg BP Diastolic Sitting Left Arm 68 mmHg Heart Rate 82 /min Respiratory Rate 16 /min Height 61 inches 5'1" Weight 136.00 lb BMI (Body Mass Index) 25.7 kg/m2 BSA (Body Surface Area) 1.60 m2 [place] body weight in kilograms 48 kg O2 % BldC Oximetry 96 % Results Test Date Facility Test Result H/L Range Note Respiratory 05/07/2019 [facility] Gram Stain NO ORGANISMS 1, 2 Culture W/Gram St [address] SEE <SEE NOTE> [place] [address] [phone] Respiratory Culture RESPIRATORY LEILANI <SEE NOTE> 3 Anaerobic Culture 05/07/2019 [facility] Gram Stain NO ORGANISMS SEE 4 W/ GR Stain [address] <SEE NOTE> [place] [address] [phone] Anaerobic Culture NO GROWTH Pleural FLD 05/07/2019 [facility] Smear Review (SEE NOTE) 5 cc/Diff [address] [place] [address] [phone] Afb Smear And 05/07/2019 [facility] Afb Culture No acid fast [address] [place] <SEE NOTE> [place] [facility] [phone] Fungal Culture 05/07/2019 [facility] Fungal Fluorochrome Result 1 7 With Smear [address] Stain [place] [address] [phone] Fungal Culture; Other Sources No yeast or mold <SEE NOTE> 8 Viral Culture 05/07/2019 [facility] Viral Culture No virus [address] isolate <[place] [address] NOTE> [phone] CBC 04/29/2019 [facility] White Blood 7.9 K/uL Normal 3.1-10 10 W/Automated [address] Count .7 [place] [address] [phone] Red Blood Count 4.10 M/uL Normal 3.90-5.40 Hemoglobin 12.6 gm/dL Normal 11.6-15.8 Hematocrit 37.7 % Normal 36.0-46.1 Mean Cell Volume 92.0 fl Normal 80.9-99.0 Mean Corpuscular HGB 30.7 pg Normal 25.9-32.7 Mean Corpuscular HGB Conc 33.4 g/dL Normal 30.8-34.3 Platelet Count 353 K/uL Normal 155-360 Red Cell Distri Width SD 45.5 fl Normal 36-47 Red Cell Distri Width %CV 13.3 % Normal 11.7-14.4 Mean Platelet Volume 9.8 fl Normal 8.9-12.4 Neut% 51.5 % Normal 40.4-72.8 Lymph % 32.7 % Normal 20.0-42.0 Grimes % 11.2 % Normal 4.3-13.2 Eo% 3.1 % Normal 0.0-6.6 Bas% 1.1 % Normal 0.0-1.1 Immature Grans 0.4 % Normal 0.0-5.0 NRBC % 0.0 /100WBC < 10/ 100 WBC Neut# 4.04 K/uL Normal 1.8-7.0 Lymph # 2.57 K/uL Normal 1.0-4.0 Grimes # 0.88 K/uL Normal 0.3-0.9 Eos # 0.24 K/uL Normal 0.0-0.5 Baso # 0.09 K/uL Normal 0.0-0.1 Immature Grans Absolute 0.03 K/uL NRBC # 0.00 K/uL Anticoagulant Therapy? NO Act Partial 04/29/2019 [facility] Act Partial 27.6 seconds Normal 23.4-35.0 Thrombo Time [address] [place] [place] [address] [phone] Anticoagulant Therapy? NO Protime 04/29/2019 [facility] Protime 13.4 seconds Normal 12.0-14.[address] [place], [place] [id number] [phone] Inr 1.0 Normal 0.9-1.1 11 Anticoagulant Therapy? NO 1 CONSULT 05/03/19 10:00 2 NO ORGANISMS SEEN 3 RESPIRATORY DENIA 4 NO ORGANISMS SEEN 5 See separate report. Specimen sent to [facility]. [facility] for fluid cell count. Acc# [id number] 6 No acid fast bacilli isolated after 6 weeks. Performed at: [address] [id number] Accounting Systems Analyst: Danika Nichols MD, Phone: [phone] RAMU/Calcofluor preparation: no fungus observed 8 No yeast or mold isolated after 4 weeks. Performed at: [address] [id number] Accounting Systems Analyst: Danika Nichols MD, Phone: [phone] No virus isolated. Performed at: [address] [address] Accounting Systems Analyst: Shakir Sharma MD 10 Z02.219 11 THERAPEUTIC INR RANGE: 2.0 - 3.0 DVT, Pulmonary embolus, prophylaxis against venous thrombosis or systemic embolization in high risk patients. 2.5 - 3.5 Mechanical heart valves Procedures Date Code Description Status 05/07/2019 45783 Bronchoscopy, with bronchial alveolar lavage Completed Medical Devices Description No Information Available Encounters Type Date Location Provider Dx Diagnosis Office Visit 05/12/2019 Pulmonology Hoa Whtie J45.20 Mild intermittent 11:20a PA asthma, uncomplicated J41.0 Simple chronic bronchitis Office Visit 04/29/2019 2:30p Pulmonology Poncho Page J45.20 Mild intermittent MD asthma, uncomplicated J41.0 Simple chronic bronchitis Z01.818 Encounter for other preprocedural examination Office Visit 03/17/2019 10:20a Pulmonology Hoa White J45.20 Mild intermittent PA asthma, uncomplicated R05 Cough Office Visit 01/26/2019 3:30p Pulmonology Poncho Page J45.20 Mild intermittent MD asthma, uncomplicated 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 Assessments Date Code Description Provider 07/06/2019 J41.0 Simple chronic bronchitis Hoa White, PA 05/12/2019 J45.20 Mild intermittent asthma, uncomplicated Hoa White, PA 05/12/2019 J41.0 Simple chronic bronchitis Steve Whitemy, PA 05/07/2019 R05 Cough Poncho Page MD 04/29/2019 J45.20 Mild intermittent asthma, uncomplicated Poncho Page MD 04/29/2019 J41.0 Simple chronic bronchitis Poncho Page MD 04/29/2019 Z01.818 Encounter for other preprocedural examination Poncho Page MD 03/17/2019 J45.20 Mild intermittent asthma, uncomplicated Hoa White, PA 03/17/2019 R05 Cough Hoa White, PA 01/26/2019 J45.20 Mild intermittent asthma, uncomplicated Poncho Page MD 01/26/2019 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 Functional Status Functional Condition Comment Date Status Independent with all ADL's Active Mental Status Description No Information Available Referrals Description No Information Available
--- OUTSIDE RECORDS SUMMARY | 2019-08-10 12:49 | XMS REPORT | Continuity of Care Document ---
:1940 Author Name Drapery Cutter Machine, System Address Unavailable Unavailable , Care Team [...] Historical Summary 28-Jul-2019 13:04 To 28-Jul-2019 13:09 [place] [facility] Office Payers Medicare [place] [address] [facility] [address] [place] Group Number: NONE tel: [facility] [address] [address] [facility] [address] [place] Group Number: NONE tel: [facility] [address] [facility] [id number] [place] tel:
[2019-08-10 13:10] VITALS: BP 125/62
--- NOTE | 2019-08-10 13:30 | UC ---
Skin Complaint HPI - HPI Summary HPI Summary: hives x 1 day hives all over , very itchy 7 out of 10 in intensity , had a chemical stress test yesterday , rash started the next day , had SOB during the stress test , but improved no cough , no sob , no wheezing, no fever, no chills - History of Current Complaint Chief Complaint: UCSkin Time Seen by Provider: 08/10/19 12:50 Stated Complaint: RASH Hx Obtained From: Patient Hx Last Menstrual Period: n/a Onset/Duration: Gradual Onset, Lasting Days - 1, Still Present Timing: Constant Onset Severity: Moderate Current Severity: Moderate Pain Intensity: 9 Location: Diffuse Character: Pruritus, Hives, Redness Aggravating Factor(s): Nothing Alleviating Factor(s): Nothing Associated Signs & Symptoms: Positive: Rash. Negative: Nausea, Vomiting, Numbness, Difficulty Breathing, Fever, Chills, Wheezing, Chest Pain, Hoarseness , Throat Tightening - Allergy/Home Medications Allergies/Adverse Reactions: Allergies Allergy/AdvReac Type Severity Reaction Status Date / Time amlodipine [From Norvasc] Allergy Swelling Verified 08/10/19 12:51 of legs cephalexin [From Keflex] Allergy Rash Verified 08/10/19 12:51 lisinopril Allergy Coughing Verified 08/10/19 12:51 morphine AdvReac Vomiting Verified 08/10/19 12:51 Home Medications: Home Medications Esomeprazole Magnesium [Nexium 24Hr] 20 mg PO QAM 08/10/19 [History Confirmed ] Estradiol VAGINAL TAB(NF) [Vagifem] 1 tab SEE INSTRUCTIONS 08/10/19 [History Confirmed 08/10/19] Furosemide TAB* [Lasix TAB*] 20 mg PO DAILY 08/10/19 [History Confirmed 08/10/19 ] Mometasone/Formoter 200/5 MDI* [Dulera 200/5 MDI*] 2 puff INH BID 08/10/19 [ History Confirmed 08/10/19] Pitavastatin Calcium [Livalo] 1 tab QPM 08/10/19 [History Confirmed 08/10/19] PMH/Surg Hx/FS Hx/Imm Hx - Additional Past Medical History Additional PMH: Thyroid cancer Endocrine History: Thyroid Disease Cardiovascular History: Cardiac Disease, Hypertension, Pacemaker/ICD, Congestive Heart Failure Respiratory History: COPD, Asthma - Surgical History Surgical History: Yes Surgery Procedure, Year, and Place: hysterectomy, c-sect x 4, disc herniation x 2, thyroid x 2, cardiac pacemaker and pneumo thorax 12/17/16- [facility]; and re-do at [facility] due to incorrect lead, a-fib - Family History Known Family History: Positive: Cardiac Disease - Social History Alcohol Use: None Substance Use Type: None Smoking Status (MU): Never Smoked Tobacco Have You Smoked in the Last Year: No - Immunization History Most Recent Tetanus Shot: 2013 approximately Review of Systems All Other Systems Reviewed And Are Negative: Yes Constitutional: Positive: Negative Skin: Positive: Rash Eyes: Positive: Negative ENT: Positive: Negative Respiratory: Positive: Negative Is Patient Immunocompromised?: No Physical Exam Triage Information Reviewed: Yes Appearance: Well-Appearing, No Pain Distress, Well-Nourished Vital Signs: Initial Vital Signs Temp 100 F 08/10/19 13:01 Pulse 82 08/10/19 13:01 Resp 16 08/10/19 13:01 BP 125/62 08/10/19 13:01 Pulse Ox 97 08/10/19 13:01 Vital Signs Reviewed: Yes Eye Exam: Normal Eyes: Positive: Conjunctiva Clear ENT: Positive: Normal ENT inspection, Hearing grossly normal, Pharynx normal Neck: Positive: Supple, Nontender, No Lymphadenopathy Respiratory: Positive: Chest non-tender, Lungs clear, Normal breath sounds Cardiovascular: Positive: RRR, No Murmur, Pulses Normal Skin: Positive: Rashes - macular rash / generalized, itchy, Course/Dx - Diagnoses Provider Diagnosis: Hives Discharge ED - Sign-Out/Discharge Documenting (check all that apply): Patient Departure All imaging exams completed and their final reports reviewed: No Studies - Discharge Plan Condition: Stable Disposition: HOME Prescriptions: predniSONE [Prednisone 20 MG TAB] 20 mg PO BID #10 tablet Patient Education Materials: General Allergic Reaction (ED) Referrals: Juan Angel MD [Primary Care Provider] - 5 Days - Billing Disposition and Condition Condition: STABLE Disposition: Home
== END 2019-08-10 13:31 | disposition home or self-care (01) ==
LOC: UCCORT 12:42
DX: L50.9 Urticaria, unspecified (principal); Z85.850 Personal history of malignant neoplasm of thyroid; I11.0 Hypertensive heart disease with heart failure; I50.9 Heart failure, unspecified; Z95.0 Presence of cardiac pacemaker; J44.9 Chronic obstructive pulmonary disease, unspecified
CPT/HCPCS: 99212; G0463